=== PATIENT | male | born 1930 | race Caucasian/White ===

== ENCOUNTER 2019-01-03 06:13 | Day surgery (SDC) | payer MEDICARE ==
[2019-01-03] VITALS (9 sets, daily range): BP systolic 121–156; BP diastolic 58–83
[~2019-01-03] VITALS: Ht 182.9 cm; Wt 80.0 kg
[2019-01-03] MEDS ORDERED: ceFAZolin 2gm in dextrose, iso 100 ML IV ONE (06:45)
[2019-01-03] MEDS ORDERED: normal saline 1000ml 1,000 ML IV PRN (06:45)
[2019-01-03] MEDS ORDERED: FURO-150 PO (06:49)
[2019-01-03] MEDS ORDERED: FOLI0.8C PO (06:49)
[2019-01-03] MEDS ORDERED: MELA3TAB PO (06:49)
[2019-01-03] MEDS ORDERED: CARV25TA2 PO (06:49)
[2019-01-03] MEDS ORDERED: TRAM50TA2 PO (06:49)
[2019-01-03] MEDS ORDERED: ASPI81TA52 PO (06:49)
[2019-01-03] MEDS ORDERED: LISI10TA4 PO (06:49)
[2019-01-03] MEDS ORDERED: SIMV10TA2 PO (06:49)
[2019-01-03 07:34] LABS: BASOPHILS % (AUTO) 0.6 % (0-1); EOSINOPHILS # (AUTO) 0.1 X10'3 (0-0.9); EOSINOPHILS % (AUTO) 1.7 % (0-6); HEMATOCRIT 38.5 % (42.0-52.0); HEMOGLOBIN 12.8 g/dl (14.0-17.9); MEAN CORPUSCULAR HEMOGLOBIN 30.9 PG (27.0-31.0); MEAN CORPUSCULAR HGB CONC 33.2 g/dL (33.0-36.5); MEAN CORPUSCULAR VOLUME 92.9 FL (78-98); MEAN PLATELET VOLUME 7.8 FL (7.4-10.4); MONOCYTES # (AUTO) 0.5 X10'3 (0-0.9); MONOCYTES % (AUTO) 8.9 % (2-12); NEUTROPHILS # (AUTO) 3.2 X10'3 (1.8-7.7); NEUTROPHILS % (AUTO) 54.8 % (42-75); PLATELET COUNT 195 X10'3 (140-440); RED BLOOD COUNT 4.14 X10'6 (4.70-6.10); RED CELL DISTRIBUTION WIDTH 13.8 % (11.5-14.5); WHITE BLOOD COUNT 5.9 X10'3 (4.5-11.0)
[2019-01-03 07:44] LABS: ALBUMIN 3.6 G/DL (3.4-5.0); ANION GAP 12 (8-16); BLOOD UREA NITROGEN 36 MG/DL (7-18); BUN/CREATININE RATIO 21.3 (5.4-32.0); CHLORIDE 106 MMOL/L (99-107); CREATININE 1.69 MG/DL (0.60-1.10); GLUCOSE 100 MG/DL (70-104); POTASSIUM 4.5 MMOL/L (3.5-5.1); SODIUM 140 MMOL/L (135-145); TOTAL CARBON DIOXIDE 22.5 MMOL/L (24-32); eGFR 39 ML/MIN
[2019-01-03] MEDS ORDERED: iohexol 300 MG/1 ML 50ml polymer ONE (08:17)
[2019-01-03] MEDS ORDERED: LIDOcaine 1%/PF 5ML 10 MG/ML VIAL ONE (08:17)
[2019-01-03] MEDS ORDERED: midazolam 2 mg/2 ml injection IV PRN (08:20)
[2019-01-03] MEDS ORDERED: LIDOcaine 1%/PF 5ML 10 MG/ML VIAL SQ ONE (08:20)
[2019-01-03] MEDS ORDERED: fentaNYL/PF 50MCG/1 ML 2ML syringe IV PRN (08:20)
[2019-01-03] MEDS ORDERED: fentaNYL/PF 50MCG/1 ML 2ML syringe ONE ×2 (08:45→09:07)
[2019-01-03] MEDS ORDERED: diphenhydrAMINE 50 mg/ml inj ONE (08:45)
[2019-01-03] MEDS ORDERED: midazolam 2 mg/2 ml injection ONE ×2 (08:45→09:07)
[2019-01-03] MEDS ORDERED: normal saline 1000ml 1,000 ML IV SCH (10:04)
== END 2019-01-03 13:18 | disposition home or self-care (01) ==
LOC: SSTAY O 06:13
PROVIDERS: ATTEND Radiology Diagnostic Radiology
DX: S32.028A Other fracture of second lumbar vertebra, initial encounter for closed fracture (principal); X58.XXXA Exposure to other specified factors, initial encounter; Y93.89 Activity, other specified; Y92.89 Other specified places as the place of occurrence of the external cause; Y99.8 Other external cause status; M54.5 Low back pain; Z79.899 Other long term (current) drug therapy
CPT/HCPCS: 22514; 36415; 80048; 85025; 85610; C1713; J0690; J1200; J2001; J2250; J3010; J7030; Q9967; 88173; 88305; 99152; 99153